=== PATIENT | male | born 1960 | race Caucasian/White ===

== ENCOUNTER 2020-11-28 15:13 | Inpatient (IN) | payer OTHER ==
[~2020-11-28 15:13] MED LIST: Iopamidol-370 76% 500 ML 1 ML ONE
[2020-11-28] MEDS ORDERED: Metoprolol Tartrate 25 MG TAB ONE (15:50)
[2020-11-28 16:59] LABS: CKMB 7.4 ng/mL (0-6.6)
[2020-11-28 18:32] VITALS: BMI 44.4
[2020-11-28 20:08] LABS: Troponin I 0.871 ng/mL (< 0.028)
[2020-11-28] MEDS ORDERED: Ondansetron PF 4 MG/2 ML Vial IVP PRN (20:14)
[2020-11-28] MEDS ORDERED: Ondansetron ODT 4 MG TAB PO PRN (20:14)
[2020-11-28] MEDS ORDERED: Aspirin Chewable 81 MG TAB PO SCH (20:45)
[2020-11-28] MEDS: Metoprolol Tartrate 25 MG TAB PO SCH (21:09)
[2020-11-28] MEDS ORDERED: Magnesium 2 GM/50 ML 2 GM in Premix Bag 1 BAG IVPB SCH (22:45)
[2020-11-28 23:13] LABS: Critical Call Chem Troponin I DECREASING; Troponin I 0.789 ng/mL (< 0.028)
[2020-11-28] MEDS: Acetaminophen 325 MG TAB PO PRN (23:36)
[2020-11-29 00:32] LABS: SARS-CoV-2 NAA Rapid Test Not Detected (NotDetected)
[2020-11-29] MEDS ORDERED: Enoxaparin Sodium 100 MG/ML SYRINGE SC SCH (02:00)
[2020-11-29 04:19] LABS: #Eosinphils 0.7 thou/uL (0.0-0.7); #Lymphocytes 1.9 thou/uL (1.20-3.40); #Monocytes 0.7 thou/uL (0.11-0.59); #Neutrophils 5.1 thou/uL (1.40-6.50); %Basophils 0.4 % (0.0-1.0); %Eosinophils 8.1 % (0.0-10.0); %Lymphocytes 22.7 % (21.0-51.0); %Monocytes 8.3 % (0.0-10.0); %Neutrophils 60.5 % (42.0-75.0); Hemoglobin 14.7 g/dL (14.0-18.0); Mean Corpuscular HGB CONC 33.2 g/dL (32.0-36.0); Mean Corpuscular Hemoglobin 29.7 pg (27.0-31.0); Mean Corpuscular Volume 89.6 fL (78.0-98.0); Mean Platelet Volume 8.2 fL (7.4-10.4); Platelet Count 234 thou/uL (130-400); RBC Distribution Width 13.2 % (11.5-14.5); Red Blood Cell (RBC) Count 4.95 mill/uL (4.70-6.10); White Blood Cell (WBC) Count 8.4 thou/uL (4.8-10.8)
[2020-11-29 04:30] LABS: Anion Gap 12 mmol/L (10-20); BUN (Urea Nitrogen) 14 mg/dL (8.4-25.7); Calc. Creatinine Clearance 123 mL/min (70-130); Calcium 8.9 mg/dL (7.8-10.44); Carbon Dioxide 25 mmol/L (22-29); Chloride 104 mmol/L (98-107); Glucose 88 mg/dL (70-105); Potassium 3.6 mmol/L (3.5-5.1); Sodium 137 mmol/L (136-145)
[2020-11-29] MEDS ORDERED: Metoprolol Tartrate 5 MG/5 ML VIAL IVP SCH (04:30)
[2020-11-29] MEDS ORDERED: Metoprolol Tartrate 5 MG/5 ML VIAL IVP PRN (04:44)
[2020-11-29] MEDS ORDERED: Heparin 25,000 units/D5W 500 ML IVPB SCH (05:15)
[2020-11-29 05:39] LABS: Hemoglobin 14.9 g/dL (14.0-18.0); Platelet Count 234 thou/uL (130-400)
[2020-11-29] MEDS: Heparin 10,000 UNITS/ 10 ML VIAL SLOW IVP SCH ×2 (06:49→21:03)
[2020-11-29] MEDS: Aspirin Chewable 81 MG TAB PO SCH (09:01)
[2020-11-29] MEDS: Potassium Chloride 20 MEQ TAB PO SCH ×2 (09:01→18:17)
[2020-11-29] MEDS: Metoprolol Tartrate 25 MG TAB PO SCH (09:01)
[2020-11-29] MEDS ORDERED: Gabapentin 300 MG CAP PO SCH (10:00)
[2020-11-29] MEDS: Acetaminophen 325 MG TAB PO PRN (18:17)
[2020-11-29] MEDS ORDERED: cloNIDine 0.1 MG TAB PO PRN (18:59)
[2020-11-29] MEDS ORDERED: Communication Order-Pharmacy FS SCH (19:15)
[2020-11-29] MEDS: Gabapentin 300 MG CAP PO SCH (20:37)
[2020-11-29] MEDS: Sodium Chloride 0.9% 1,000 ML IV SCH (23:47)
[2020-11-30] MEDS ORDERED: Verapamil 5 MG/2 ML VIAL ONE (06:38)
[2020-11-30] MEDS ORDERED: Nitroglycerin 100MG/250ML BOT 250 ML ONE (06:38)
[2020-11-30] MEDS ORDERED: Lidocaine 1% (PF) 30 ML VIAL ONE (06:38)
[2020-11-30] MEDS ORDERED: Heparin 10,000 UNITS/ 10 ML VIAL ONE (06:38)
[2020-11-30] MEDS: Gabapentin 300 MG CAP PO SCH (07:27)
[2020-11-30] MEDS ORDERED: Fentanyl 100 MCG/2 ML VIAL ONE (08:09)
[2020-11-30] MEDS ORDERED: Midazolam HCl 2 mg/2 ml Vial ONE (08:09)
[2020-11-30] MEDS ORDERED: Ondansetron PF 4 MG/2 ML Vial ONE (08:34)
[2020-11-30] MEDS ORDERED: Sodium Chloride 0.9% 200 ML IV PRN (09:02)
[2020-11-30] MEDS ORDERED: Acetaminophen/Codeine 30-300mg Tablet PO PRN (09:02)
[2020-11-30] MEDS: Aspirin Chewable 81 MG TAB PO SCH (10:12)
[2020-11-30] MEDS ORDERED: Iopamidol 370 76% 100 ML VIAL ONE (10:55)
[2020-11-30] MEDS ORDERED: Losartan 25 MG TAB PO SCH (13:30)
[2020-11-30] MEDS: Sodium Chloride 0.9% 1,000 ML IV SCH (14:17)
[2020-11-30 15:10] VITALS: BP 139/78; TEMP 97.9
[2020-11-30] MEDS ORDERED: Atorvastatin Calcium 10 MG TAB PO SCH (21:00)
[2020-12-01] MEDS ORDERED: Apixaban 5 MG TAB PO SCH (09:00)
== END 2020-11-30 17:17 | disposition home or self-care (01) | DRG 281 ==
LOC: ERS 15:13 → 2NO 16:21
PROVIDERS: ADMIT Internal Medicine; ATTEND Internal Medicine
PROC: 4A023N7 Measurement of Cardiac Sampling and Pressure, Left Heart, Percutaneous Approach (ICD-10-PCS; principal; 2020-11-28)
PROC: B2111ZZ Fluoroscopy of Multiple Coronary Arteries using Low Osmolar Contrast (ICD-10-PCS; 2020-11-28)
PROC: B2151ZZ Fluoroscopy of Left Heart using Low Osmolar Contrast (ICD-10-PCS; 2020-11-28)
DX: I48.91 Unspecified atrial fibrillation (principal); I21.A1 Myocardial infarction type 2; Z68.41 Body mass index [BMI] 40.0-44.9, adult; N13.30 Unspecified hydronephrosis; Z96.652 Presence of left artificial knee joint; E83.42 Hypomagnesemia; F13.10 Sedative, hypnotic or anxiolytic abuse, uncomplicated; E66.01 Morbid (severe) obesity due to excess calories; E87.6 Hypokalemia; I12.9 Hypertensive chronic kidney disease with stage 1 through stage 4 chronic kidney disease, or unspecified chronic kidney disease; N18.2 Chronic kidney disease, stage 2 (mild); I25.10 Atherosclerotic heart disease of native coronary artery without angina pectoris; Z88.8 Allergy status to other drugs, medicaments and biological substances; Z90.49 Acquired absence of other specified parts of digestive tract
CPT/HCPCS: 36415; 71275; 80048; 83735; 85025; 85379; 85730; 93005; 93010; 93458; 94760; 96374; 99152; 99153; J1644; J2001; J2250; J2405; J3010; J3475; Q9967; U0002